=== PATIENT | male | born 1950 | race Caucasian/White ===

== ENCOUNTER → 2018-07-29 20:05 | Outpatient (CLI) | payer MEDICARE, OTHER, SELFPAY ==
--- NOTE | 2018-07-29 20:10 | DI.MRI.S_ITS ---
PROCEDURE: MR HEAD/BRAIN WO CON INDICATIONS: HYPOGONADISM TECHNIQUE: Noncontrast axial T1 spin echo, axial T2 fast spin echo, sagittal and axial FLAIR, coronal T2 fast spin echo, axial gradient echo, axial diffusion and ADC through the brain. COMPARISON: None. FINDINGS: Image quality: Excellent. CSF Spaces: Basal cisterns are patent. No extra-axial fluid collections. Ventricles are normal in size and shape. Brain: No intracranial masses or hemorrhage. Landry/white matter interface is normal. Brainstem appears normal. Diffusion-weighted images demonstrate no acute ischemic insult. No chronic ischemic insults. Normal intravascular flow voids are present. Skull and face: Calvarium has normal marrow signal. Orbits appear normal. Sinuses: Sinuses and mastoids are clear. IMPRESSION: Normal for age, normal appearance of the hypothalamus and pituitary fossa. The brain parenchyma appears normal for age without appreciable microvascular atherosclerotic change or evidence of prior stroke or mass. Dictated by: Matt Garber M.D. on 08/01/2018 at 8:16 Approved by: Matt Garber M.D. on 08/01/2018 at 8:17
== END ==
PROVIDERS: Visit Provider Internal Medicine
DX: E23.7 Disorder of pituitary gland, unspecified (principal)
CPT/HCPCS: 70551

== ENCOUNTER 2019-01-30 10:10 | Day surgery (SDC) | payer MEDICARE, OTHER, SELFPAY ==
--- NOTE | 2019-01-30 06:52 | PM.HP.1 ---
History of Present Illness History of Present Illness Date Patient Seen: 01/30/19 Time Patient Seen: 11:18 Chief complaint: [id number] Narrative: Patient presents for colorectal screening. They had a prior colonoscopy 15 years ago which was normal. Anemia has promted this screening. On further history denies any recent gastrointestinal symptoms. No nausea, vomiting, abdominal pain, loss of appetite, unexplained weight loss, change in bowel habits, diarrhea, constipation, melena, hematochezia, or bright red blood per rectum. Patient History Medical History HLD (hyperlipidemia) (Acute) HTN (hypertension) (Acute) Myocardial infarct, old (Acute) Surgical History Hx of heart artery stent (Acute) Meds Home Medications and Allergies Home Medications Medication Instructions Recorded Confirmed Type aspirin [Aspirin Low Dose] 81 mg PO DAILY 01/30/19 01/30/19 History atorvastatin [Lipitor] 10 mg PO DAILY 01/30/19 01/30/19 History ctxjxbjjnezv-qpf-ejed-FA-vit K 1 tab PO DAILY 01/30/19 01/30/19 History [Multi-Day Plus Minerals] vit D3-folic [id number]-[id number]-B12 1 tab PO DAILY 01/30/19 01/30/19 History Allergies Allergy/AdvReac Type Severity Reaction Status Date / Time clopidogrel [From Plavix] Allergy Intermediate Rash Verified 01/30/19 10:35 Review of Systems Review of Systems ROS Unobtainable: All systems reviewed & are unremarkable except as noted in HPI and below Exam Narrative Exam Narrative: General-no acute distress, well nourished HEENT-moist mucous membranes, no scleral icterus Neck-supple, no lymphadenopathy Chest- non labored respirations, clear to auscultation bilaterally Cardiac-regular rate no peripheral edema Abdomen-soft, nontender, non distended Extremities-warm, well perfused Neurological-alert and oriented, no focal deficits Assessment & Plan Assessment & Plan narrative: The patient requires colorectal screening and colonoscopy is recommended. Technical details were discussed. Risks, benefits, alternatives explained. Risks including but not limited to myocardial infarction, aspiration, bleeding, pain, missed lesion, incomplete examination, need for further radiographic studies, colonic perforation, and need for major abdominal surgery were discussed. All questions were answered to their satisfaction, and they are in agreement with this plan.
[2019-01-30 10:48] VITALS: BP 141/75; PULSE 81; RESP 16; TEMP 37.1; O2SAT 95; BMI 33.0
[2019-01-30] MEDS: SODIUM CHLORIDE 0.9% 1,000 ML 200 ML IV (10:57)
[2019-01-30] MEDS: ONDANSETRON 4 MG/2 ML INJ IV (11:07)
[2019-01-30] MEDS: MIDAZOLAM 5 MG/5 ML VIAL IV (11:26)
[2019-01-30] MEDS: fentaNYL 250 MCG/5 ML INJ IV (11:27)
--- NOTE | 2019-01-30 11:49 | PM.OP.ENDO ---
Operative Date/Time/Diagnoses Date of procedure: 01/30/19 Time of procedure: 11:49 Pre-op diagnosis: Screening colonoscopy Post-op diagnosis: same Procedure & Clinicians Study performed: Colonoscopy Same procedure as scheduled: Yes Indications: This is a 68-year-old male previous colonoscopy 11 years ago presents for screening endoscopy secondary to anemia Surgeon: Chris David Procedure Notes SCOAP/Timeout: Performed Procedure in detail: Patient placed in left lateral decubitus position. Time out was performed. Procedural sedation was administered with Versed and Fentanyl. A rectal exam demonstrated no external hemorrhoids no internal masses. Colonoscopy scope was placed into the rectum and advanced through the colon to the cecum. The ileocecal valve was identified. The scope was then slowly withdrawn examining colon thoroughly in all directions. The colonoscopy was notable for the following 1. Diverticulosis 2. Grade 1 internal hemorrhoids 3. Quality of prep was excellent Scope withdrawal time: 8 Sedation minutes: 21 Findings: diverticulosis and internal hemorrhoids Specimen(s): none sent Complications: none Impression: Diverticulosis Post-procedure Recommendations: Colonscopy in 10 years Disposition: same day surgery
[2019-01-30 11:53] VITALS: BP 110/72; PULSE 73; RESP 19; TEMP 36.1; O2SAT 96
[2019-01-30 11:58] VITALS: BP 108/63; PULSE 74; RESP 14; O2SAT 96
[2019-01-30 12:03] VITALS: BP 118/61; PULSE 75; RESP 20; O2SAT 97
[2019-01-30 12:08] VITALS: BP 116/55; PULSE 72; RESP 16; TEMP 36.4; O2SAT 97
[2019-01-30 12:40] VITALS: BP 112/68; PULSE 65; RESP 17; TEMP 36.1; O2SAT 97
== END 2019-01-30 12:55 | disposition home or self-care (01) ==
PROVIDERS: PCP Internal Medicine; Visit Provider Surgery
PROC: 0DJD8ZZ Inspection of Lower Intestinal Tract, Via Natural or Artificial Opening Endoscopic (ICD-10-PCS; CPT 45378; principal; 2019-01-30 11:45)
DX: Z12.11 Encounter for screening for malignant neoplasm of colon (principal); K57.30 Diverticulosis of large intestine without perforation or abscess without bleeding; K64.0 First degree hemorrhoids; D64.9 Anemia, unspecified; E78.5 Hyperlipidemia, unspecified; I10 Essential (primary) hypertension; I25.2 Old myocardial infarction
CPT/HCPCS: G0121; 99152; J2250; J2405; J3010